=== PATIENT | male | born 1985 | race Caucasian/White ===

== ENCOUNTER → 2017-01-19 | Outpatient (CLI) | payer OTHER ==
--- NOTE | 2017-01-20 13:25 | REP ---
Right tib-fib series: Four views. History: Acute right ankle pain and injury. Findings: Four views of the right tibia and fibula show normal bones, joints and soft tissues. No fracture or subluxation is seen. Impression: No fracture noted. Signed by Julian Mata MD 01/20/2017 03:03 P
== END ==
LOC: M LRY 11:38
PROVIDERS: ATTEND Physician Assistant
DX: M25.571 Pain in right ankle and joints of right foot (principal)